=== PATIENT | female | born 1935 | race Hispanic/Latino ===

== ENCOUNTER 2022-09-27 14:50 | Emergency (ER) | payer MEDICARE ==
[~2022-09-27] VITALS: Ht 154.9 cm; Wt 68.0 kg
[~2022-09-27 14:50] MED LIST: BYSTOLIC10 MG PO; CLONIDINE HCL0.2 MG PO; COUMADIN2 MG PO; DIGOXIN125 MCG PO; DIOVAN160 MG PO; FAMOTIDINE20 MG PO; KEFLEX500 MG PO; LASIX40 MG PO; LISINOPRIL10 MG PO; NORVASC5 MG PO; SIMVASTATIN40 MG PO
[2022-09-27 15:26] LABS: BASOPHILS # (AUTO) 0.1 (0.0-0.1); BASOPHILS % 0.5 % (0.0-1.0); EOSINOPHILS % 0.4 % (0.0-6.0); HEMATOCRIT 38.9 % (34.2-44.1); HEMOGLOBIN 12.8 g/dL (12.0-16.0); LYMPHOCYTES # (AUTO) 1.3 (1.0-3.2); LYMPHOCYTES % 11.8 % (18.0-39.1); MEAN CORPUSCULAR HEMOGLOBIN 29.5 pg (28-32); MEAN CORPUSCULAR HGB CONC 32.9 g/dL (31-35); MEAN CORPUSCULAR VOLUME 89.6 fL (81-99); MONOCYTES # (AUTO) 1.1 (0.2-0.8); MONOCYTES % 9.3 % (4.4-11.3); NEUTROPHILS # (AUTO) 8.8 (2.1-6.9); NEUTROPHILS % 77.4 % (38.7-80.0); PLATELET COUNT 265 x10e3/uL (140-360); RED BLOOD COUNT 4.34 x10e6/uL (3.6-5.1); RED CELL DISTRIBUTION WIDTH 13.2 % (11.7-14.4)
[2022-09-27 15:46] LABS: ALBUMIN 4.2 g/dL (3.5-5.0); ALBUMIN/GLOBULIN RATIO 1.1 (0.8-2.0); CALCIUM 9.9 mg/dL (8.4-10.2)
[2022-09-27 17:08] VITALS: BP 168/82
== END 2022-09-27 17:09 | disposition home or self-care (01) ==
LOC: ER 15:05
DX: H93.19 Tinnitus, unspecified ear (principal); I10 Essential (primary) hypertension; I50.9 Heart failure, unspecified; I48.91 Unspecified atrial fibrillation; E78.5 Hyperlipidemia, unspecified
CPT/HCPCS: 36415; 70450; 80053; 85025; 99283